=== PATIENT | female | born 1975 | race Native Hawaiian/Other Pacific Islander ===

== ENCOUNTER 2019-10-29 02:15 | Emergency (ER) | payer SELFPAY ==
[2019-10-29] MEDS ORDERED: SODIUM CHLORIDE 0.9% 500 ML 500 ML IV ONE (03:08)
--- NOTE | 2019-10-29 03:14 | Emergency Department Report ---
ED Dizziness HPI - General Chief Complaint: Fall Stated Complaint: SYNCOPE Time Seen by Provider: 10/29/19 03:02 Source: patient, EMS Mode of arrival: Stretcher Limitations: Language Barrier - History of Present Illness Initial Comments: Mrs. Chiu is a 44 yo female with hx of HTN who presents with dizziness and fall, possible near syncope. She states that she did not faint. The lightheadedness made her fall. She feels like she needs to take a deep breath but can not do so. No recent travel. No leg pain. Home Medication: Losartan Surgical Hx: Lao interpretation provided by ED nurse MD Complaint: dizziness, lightheadedness -: Gradual, This evening Timing: gradual onset Description: lightheadedness History of Same: No History of Trauma: No Severity: moderate Improves With: nothing Worsens With: nothing Associated Symptoms: shortness of breath - Related Data Previous Rx's Medication Instructions Recorded Last Taken Type Acetaminophen/Codeine [Tylenol #3] 1 tab PO Q6H PRN #20 tab 06/22/15 Unknown Rx Ibuprofen [Motrin 800 MG tab] 800 mg PO Q8HR PRN #30 tablet 06/22/15 Unknown Rx metFORMIN [Glucophage] 500 mg PO BID 30 Days #60 tablet 10/29/19 Unknown Rx Allergies Allergy/AdvReac Type Severity Reaction Status Date / Time No Known Allergies Allergy Verified 06/21/15 19:23 ED Review of Systems ROS: Stated complaint: SYNCOPE Other details as noted in HPI Comment: All other systems reviewed and negative Constitutional: malaise. denies: fever Respiratory: shortness of breath. denies: cough Cardiovascular: denies: chest pain ED Past Medical Hx - Past Medical History Previous Medical History?: Yes Hx Hypertension: Yes Additional medical history: gall stones - Surgical History Past Surgical History?: Yes Additional Surgical History: csection x 3 - Social History Smoking Status: Never Smoker Substance Use Type: None - Medications Home Medications: Home Medications Medication Instructions Recorded Confirmed Last Taken Type Acetaminophen/Codeine [Tylenol #3] 1 tab PO Q6H PRN #20 tab 06/22/15 Unknown Rx Ibuprofen [Motrin 800 MG tab] 800 mg PO Q8HR PRN #30 tablet 06/22/15 Unknown Rx metFORMIN [Glucophage] 500 mg PO BID 30 Days #60 tablet 10/29/19 Unknown Rx ED Physical Exam - General Limitations: Language Barrier General appearance: alert, in no apparent distress - Head Head exam: Present: atraumatic, normocephalic - Eye Eye exam: Present: normal appearance - ENT ENT exam: Present: mucous membranes moist - Neck Neck exam: Present: normal inspection, full ROM - Respiratory Respiratory exam: Present: normal lung sounds bilaterally. Absent: respiratory distress, wheezes, rales, rhonchi - Cardiovascular Cardiovascular Exam: Present: regular rate, normal rhythm, normal heart sounds. Absent: systolic murmur, diastolic murmur, rubs, gallop - GI/Abdominal GI/Abdominal exam: Present: soft, normal bowel sounds. Absent: distended, tenderness, guarding, rebound - Extremities Exam Extremities exam: Present: normal inspection - Back Exam Back exam: Present: normal inspection - Neurological Exam Neurological exam: Present: alert, oriented X3 - Psychiatric Psychiatric exam: Present: normal affect, normal mood - Skin Skin exam: Present: warm, dry, intact, normal color. Absent: rash ED Medical Decision Making - Lab Data Result diagrams: 10/29/19 03:25 10/29/19 03:25 Laboratory Results - last 24 hr 10/29/19 10/29/19 10/29/19 03:25 03:25 03:25 WBC 9.8 RBC 4.21 Hgb 11.5 Hct 34.3 MCV 81 MCH 27 L MCHC 34 RDW 15.0 Plt Count 316 Lymph % (Auto) 15.0 Woods % (Auto) 4.6 Eos % (Auto) 0.8 Baso % (Auto) 0.5 Lymph # 1.5 Woods # 0.5 Eos # 0.1 Baso # 0.0 Seg Neutrophils % 79.1 H Seg Neutrophils # 7.7 D-Dimer 265.03 H Sodium 137 Potassium 4.1 Chloride 99.4 Carbon Dioxide 24 Anion Gap 18 BUN 16 Creatinine 0.4 L Estimated GFR > 60 BUN/Creatinine Ratio 40 Glucose 311 H Calcium 9.8 Total Bilirubin < 0.20 AST 19 ALT 37 Alkaline Phosphatase 111 Troponin T < 0.010 Total Protein 7.4 Albumin 4.1 Albumin/Globulin Ratio 1.2 HCG, Qual 10/29/19 10/29/19 03:25 04:29 WBC RBC Hgb Hct MCV MCH MCHC RDW Plt Count Lymph % (Auto) Woods % (Auto) Eos % (Auto) Baso % (Auto) Lymph # Woods # Eos # Baso # Seg Neutrophils % Seg Neutrophils # D-Dimer Sodium Potassium Chloride Carbon Dioxide Anion Gap BUN Creatinine Estimated GFR BUN/Creatinine Ratio Glucose Calcium Total Bilirubin AST ALT Alkaline Phosphatase Troponin T < 0.010 Total Protein Albumin Albumin/Globulin Ratio HCG, Qual Negative - EKG Data EKG shows normal: sinus rhythm, axis, intervals, QRS complexes, ST-T waves Rate: tachycardia - EKG Data Interpretation: normal EKG (heart rate 100 bpm) - Radiology Data Radiology results: report reviewed Chest radiograph: No acute findings according to radiologist's impression CT angiogram without venous thromboembolic disease, porcelain gallbladder - Medical Decision Making Mrs. Wright presents with lightheadedness w/u notable for hyperglycemia 311 elevated d-dimer. Prescribed metformin. Recommended f/u with our outpatient physician for new onset diabetes. [place] ruled out with troponin x 2. PE ruled out with CT angiogram. Treated with IVF in the ED Critical care attestation.: If time is entered above; I have spent that time in minutes in the direct care of this critically ill patient, excluding procedure time. ED Disposition Clinical Impression: New onset type 2 diabetes mellitus, Gallstones Disposition: DC- TO HOME OR SELFCARE Is pt being admited?: No Does the pt Need Aspirin: No Condition: Stable Instructions: Diabetes Mellitus Type 2 in Adults (ED) Additional Instructions: Deber viky a un mdico para que le saquen la vescula biliar. Prescriptions: metFORMIN [Glucophage] 500 mg PO BID 30 Days #60 tablet Referrals: TERI GARNER MD [Staff Physician] - [facility] Forms: Work/School Release Form(ED) Print Language: SRI LANKAN
[2019-10-29 03:55] LABS: Basophils % (Auto) 0.5 % (0.0-1.8); Eosinophils # (Auto) 0.1 K/mm3 (0.0-0.4); Eosinophils % (Auto) 0.8 % (0.0-4.3); Hematocrit 34.3 % (30.3-42.9); Hemoglobin 11.5 gm/dl (10.1-14.3); Lymphocytes # (Auto) 1.5 K/mm3 (1.2-5.4); Mean Corpuscular HGB Conc 34 % (30-34); Mean Corpuscular Volume 81 fl (79-97); Monocytes # (Auto) 0.5 K/mm3 (0.0-0.8); Monocytes % (Auto) 4.6 % (0.0-7.3); Platelet Count 316 K/mm3 (140-440); Red Blood Count 4.21 M/mm3 (3.65-5.03)
[2019-10-29 04:21] LABS: Alanine Aminotransferase 37 units/L (7-56); Albumin 4.1 g/dL (3.9-5); BUN/Creatinine Ratio 40; Blood Urea Nitrogen 16 mg/dL (7-17); Calcium 9.8 mg/dL (8.4-10.2); Hemolysis Index 2
--- NOTE | 2019-10-29 04:39 | XRay Report ---
CHEST 1 VIEW INDICATION: Syncope. COMPARISON: No recent comparison exam FINDINGS: Support devices: None. Heart: Within normal limits. Lungs/Pleura: No acute air space or interstitial disease. Additional findings: None. IMPRESSION: 1. No acute findings. Signer Name: Pipo Julian MD Signed: 10/29/2019 4:35 AM Workstation Name: [id number]
--- NOTE | 2019-10-29 05:52 | Cat Scan Report ---
CTA chest with contrast INDICATION : elevated d-dimer near syncope. TECHNIQUE: Axial imaging performed through the chest, with contrast bolus timing set to maximize opa cification of the pulmonary arteries. 3-plane MIP reformatted images were obtained. All CT scans at this location are performed using CT dose reduction for ALARA by means of automated exposure control. 100 mL of intravenous contrast administered. COMPARISON: CT chest from 10/31/2010 FINDINGS: Bolus: Contrast bolus timing is adequate. PTE: No filling defect is present to suggest PTE. Mediastinum: Heart and great vessels appear normal. No pathologic mediastinal adenopathy. Lungs: Lungs are clear. Upper abdomen: Limited imaging of the upper abdomen shows a porcelain gallbladder and hepatic steato sis.. Bones: Degenerative changes in the spine with nothing acute. IMPRESSION: 1. Negative for PTE. Clear lungs. 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 Signer Name: Pipo Julian MD Signed: 10/29/2019 5:47 AM Workstation Name: [id number]
[2019-10-29 06:32] VITALS: BP 105/70
== END 2019-10-29 06:42 | disposition home or self-care (01) ==
LOC: ED 02:15
DX: E11.9 Type 2 diabetes mellitus without complications (principal); K80.20 Calculus of gallbladder without cholecystitis without obstruction; Z98.890 Other specified postprocedural states; Z79.899 Other long term (current) drug therapy
CPT/HCPCS: 36415; 71045; 71275; 80053; 84484; 84703; 85025; 85379; 93005; 93010; 99285; J7040; Q9967